=== PATIENT | female | born 1980 | race Caucasian/White ===

== ENCOUNTER 2021-12-03 23:44 | Emergency (ER) | payer OTHER ==
[2021-12-04 00:20] VITALS: BP 166/105; PULSE 86; RESP 16; TEMP 98.2
--- NOTE | 2021-12-04 02:51 | ED ---
Psych HPI - General Chief Complaint: Recheck/Abnormal Lab/Rx Stated Complaint: ER evaluation from [facility] Time Seen by Provider: 12/04/21 02:08 Source: patient, RN notes reviewed, old records reviewed Mode of arrival: ambulatory Limitations: no limitations - History of Present Illness Initial Comments: this is a 41-year-old female to the emergency department for an episode of aphasia at [place] sent to the emergency department for evaluation. Patient sent here for evaluation of inability to walk secondary to stress states she has a history of stress-induced inability to talk and has was currently happening. Unable to conversation. No other complaints MD Complaint: other (Inability to speak) -: hour(s) Associated Psychiatric Symptoms: none History of same: Yes Quality: constant Improves With: none Worsens With: none Associated Symptoms: denies other symptoms Treatments Prior to Arrival: placed on mental health hold - Related Data Allergies Allergy/AdvReac Type Severity Reaction Status Date / Time No Known Allergies Allergy Verified 12/04/21 00:20 Review of Systems ROS Statement: Those systems with pertinent positive or pertinent negative responses have been documented in the HPI. ROS Other: All systems not noted in ROS Statement are negative. Past Medical History Past Medical History: Hypertension History of Any Multi-Drug Resistant Organisms: None Reported Past Psychological History: Anxiety, Bipolar, Depression, PTSD Smoking Status: Never smoker Past Alcohol Use History: None Reported Past Drug Use History: Cocaine, Marijuana, Opiates General Exam Limitations: no limitations General appearance: alert, in no apparent distress Head exam: Present: atraumatic, normocephalic, normal inspection Eye exam: Present: normal appearance, PERRL, EOMI. Absent: scleral icterus, conjunctival injection, periorbital swelling ENT exam: Present: normal exam, mucous membranes moist Neck exam: Present: normal inspection. Absent: tenderness, meningismus, lymphadenopathy Respiratory exam: Present: normal lung sounds bilaterally. Absent: respiratory distress, wheezes, rales, rhonchi, stridor Cardiovascular Exam: Present: regular rate, normal rhythm, normal heart sounds. Absent: systolic murmur, diastolic murmur, rubs, gallop, clicks GI/Abdominal exam: Present: soft, normal bowel sounds. Absent: distended, tenderness, guarding, rebound, rigid Extremities exam: Present: normal inspection, full ROM, normal capillary refill. Absent: tenderness, pedal edema, joint swelling, calf tenderness Back exam: Present: normal inspection Neurological exam: Present: alert, oriented X3, CN II-XII intact Psychiatric exam: Present: normal affect, normal mood Skin exam: Present: warm, dry, intact, normal color. Absent: rash Course Vital Signs 12/04/21 00:10 Temperature 98.2 F Pulse Rate 86 Respiratory 16 Rate Blood Pressure 166/105 O2 Sat by Pulse 98 Oximetry - Reevaluation(s) Reevaluation #1: 12/04/2021 Medical record is reviewed Patient symptoms are improved here in the emergency department Patient informed of results and questions are answered Medical Decision Making - Medical Decision Making 41 female to the emergency department for evaluation. Patient does have history of a facial relates distress. Patient is seen evaluation psychiatry here in the ER after being made medically clear and can be discharged home Disposition Clinical Impression: Aphasia Disposition: HOME SELF-CARE Condition: Good Instructions (If sedation given, give patient instructions): Aphasia (DC) Is patient prescribed a controlled substance at d/c from ED?: No Referrals: None,Stated [Primary Care Provider] - 1-2 days
== END 2021-12-04 05:00 | disposition home or self-care (01) ==
LOC: EDSEX → EC 23:44
DX: R47.01 Aphasia (principal); I10 Essential (primary) hypertension
CPT/HCPCS: 99283